=== PATIENT | female | born 1990 | race Caucasian/White ===

== ENCOUNTER 2017-05-12 08:56 | Emergency (ER) | payer MEDICAID ==
[~2017-05-12] VITALS: Ht 152.4 cm; Wt 62.6 kg
[2017-05-12] MEDS ORDERED: NORE-89 PO (09:08)
--- NOTE | 2017-05-12 09:35 | NUR ---
pt was evaluated by dr carballo. pt was d/c cookie. d/c instructions given to the pt.
[2017-05-12 09:36] VITALS: BP 111/69
== END 2017-05-12 09:37 | disposition home or self-care (01) ==
LOC: ER 08:56
DX: S70.361A Insect bite (nonvenomous), right thigh, initial encounter (principal); Z88.0 Allergy status to penicillin; W57.XXXA Bitten or stung by nonvenomous insect and other nonvenomous arthropods, initial encounter; Y93.89 Activity, other specified; Y99.8 Other external cause status; Y92.89 Other specified places as the place of occurrence of the external cause
CPT/HCPCS: A4663